=== PATIENT | male | born 1995 | race African-American/Black ===

== ENCOUNTER 2016-03-27 00:04 | Emergency (ER) | payer SELFPAY ==
[~2016-03-27] VITALS: Ht 180.3 cm; Wt 77.0 kg
[2016-03-27 00:07] VITALS: BP 132/70; PULSE 57; RESP 16; TEMP 97.7; O2SAT 97
[2016-03-27] MEDS ORDERED: SODIUM CHLOR 0.9% 1000 ML INJ 1,000 ML IV ONE (00:37)
--- NOTE | 2016-03-27 00:40 | PD ---
HPI Chief Complaint: Headache Time Seen by Provider: 00:30 Travel History International Travel<30 days: No Contact w/Intl Traveler<30days: No Traveled to known affect area: No History of Present Illness HPI 21-year-old male presents for evaluation of a headache. He reports over the past 4 days he has had intermittent left frontal headaches which he describes as pulsating and seems to come and go. The headache seems to get better transiently with the use of Excedrin but then returns which prompted evaluation. He endorses associated nausea. He rates the pain as a 7 out of 10. There is no thunderclap onset and pain. He denies any photophobia or blurred vision, vomiting, neck stiffness, fevers or chills, congestion or cough , sore throat, rash or recent travel. He denies any significant past medical history. No formal history of migraine. He has no other complaints at this time. [facility] [place] Social History Alcohol Use: No Tobacco Use: No Substance Use: No Allergies-Medications (Allergen,Severity, Reaction): Coded Allergies: No Known Allergies (Unverified , 03/27/16) Reported Meds & Prescriptions Reported Meds & Active Scripts Active No Active Prescriptions or Reported Medications Review of Systems Except as stated in HPI: all other systems reviewed are Neg Physical Exam Narrative GENERAL: Well-developed well-nourished male who appears uncomfortable on initial examination, looking at his phone. He is not lethargic and responds to questions and commands appropriately. SKIN: Warm and dry. HEAD: Atraumatic. Normocephalic. EYES: Pupils equal and round reactive to light extraocular muscles are intact. No scleral icterus. No injection or drainage. ENT: No nasal bleeding or discharge. Mucous membranes pink and moist. No oral pharyngeal erythema or exudate. NECK: Trachea midline. No JVD. Neck supple with full range of motion. No lymphadenopathy. CARDIOVASCULAR: Regular rate and rhythm. No murmur appreciated. RESPIRATORY: No accessory muscle use. Clear to auscultation. Breath sounds equal bilaterally. NEUROLOGICAL: Awake and alert. No obvious cranial nerve deficits. Motor grossly within normal limits. Normal speech. Data Data Last Documented VS Vital Signs Date Time Temp Pulse Resp B/P Pulse Ox O2 Delivery O2 Flow Rate FiO2 03/27/16 01:56 16 03/27/16 01:01 100 Room Air 03/27/16 00:07 97.7 57 132/70 Orders Iv Access Insert/Monitor (03/27/16 00:37) Sodium Chloride 0.9% Flush (Ns Flush) (03/27/16 00:45) Ketorolac Inj (Toradol Inj) (03/27/16 00:45) Diphenhydramine Inj (Benadryl Inj) (03/27/16 00:45) Metoclopramide Inj (Reglan Inj) (03/27/16 00:45) Sodium Chlor 0.9% 1000 Ml Inj (Ns 1000 M (03/27/16 00:37) MDM Medical Decision Making Medical Screen Exam Complete: Yes Emergency Medical Condition: Yes Medical Record Reviewed: Yes Differential Diagnosis Migraine without Aura, tension headache, cluster headache, subarachnoid hemorrhage, intracranial mass, pseudotumor cerebri, temporal arteritis, trigeminal neuralgia Narrative Course 21-year-old male with intermittent left frontal pulsating headache with associated nausea. Physical examination is reassuring. I don't suspect an intracranial mass, infectious process or subarachnoid hemorrhage. I suspect a migraine without aura based on the description. The plan is to treat the patient symptomatically with IV fluids, Reglan, Benadryl and Toradol. He will be reassessed. 0155: Upon reexamination the patient's pain has resolved. He is stable for discharge. Diagnosis Primary Impression: Headache Qualified Code: R51 - Nonintractable headache, unspecified chronicity pattern , unspecified headache type Additional Instructions: Stay well-hydrated and well-nourished. Follow-up with primary care physician as needed. Return for any emergent medical conditions. Med/Other Pt SpecificInfo: No Change to Meds Scripts No Active Prescriptions or Reported Meds Disposition: DISCHARGE HOME Condition: Stable Jese Mcneill Mar 27, 2016 00:40
[2016-03-27] MEDS ORDERED: METOCLOPRAMIDE HCL 10 MG/2 ML VIAL IVP ONE (00:45)
[2016-03-27] MEDS ORDERED: SODIUM CHLORIDE 0.9% FLUSH 5 ML FLUSH IVF PRN (00:45)
[2016-03-27] MEDS ORDERED: diphenhydrAMINE HCL 50 MG/ML VIAL IVP ONE (00:45)
[2016-03-27] MEDS ORDERED: KETOROLAC TROMETHAMINE 30 MG/ML (IVP) VIAL IVP ONE (00:45)
[2016-03-27 01:56] VITALS: RESP 16
[2016-03-27 02:12] VITALS: BP 131/63; TEMP 98.5
== END 2016-03-27 02:13 | disposition home or self-care (01) ==
LOC: NEPB 00:04
DX: R51 Headache (principal); R11.0 Nausea
CPT/HCPCS: 96361; 96374; 96375; 99283; J1200; J1885; J2765; J7030